=== PATIENT | female | born 1990 | race Caucasian/White ===

== ENCOUNTER → 2020-08-02 08:54 | Outpatient (CLI) | payer BC, SELFPAY ==
--- NOTE | ~2020-08-02 | MR_ITS ---
EXAMINATION: MR lumbar spine wo con DATE: 08/02/2020 09:46 INDICATION: Chronic bilateral low back pain with bilateral sciatica. TECHNIQUE: Magnetic resonance imaging (MRI) of the lumbar spine was performed without intravenous con trast. Sequences included sagittal T2-weighted FSE, sagittal T2-weighted FS FSE, sagittal T1-weighted FSE, and axial T2-weighted FSE. COMPARISON: Lumbar spine radiographs dated 07/09/2013 FINDINGS: Alignment is normal. Vertebral body heights are normal. Normal marrow signal. Normal disc heights and signal. The conus medullaris terminates at L1. There is normal signal in the caudal spinal cord. Par avertebral soft tissues are unremarkable. The following disc levels are specifically discussed: T12-L1: Disc is minimally bulging. There is mild left and minimal right facet joint osteoarthritis. T here is no neural foraminal stenosis. There is no central canal stenosis. L1-L2: Disc is minimally bulging. There is mild bilateral facet joint osteoarthritis. There is no bruno ral foraminal stenosis. There is no central canal stenosis. L2-L3: Disc is minimally bulging. There is mild bilateral facet joint osteoarthritis. There is minima l left neural foraminal stenosis. There is no central canal stenosis. L3-L4: Minimal left foraminal zone disc protrusion. There is mild bilateral facet joint osteoarthriti s. There is no neural foraminal stenosis. There is no central canal stenosis. L4-L5: Disc is minimally bulging. There is mild right and minimal left facet joint osteoarthritis. Th ere is mild bilateral neural foraminal stenosis. There is no central canal stenosis. L5-S1: Small central disc protrusion. There is mild bilateral facet joint osteoarthritis. There is mi ld left and minimal right neural foraminal stenosis. There is no central canal stenosis. IMPRESSION: 1. Minimal to mild lumbar spondylosis. Reviewed, dictated and finalized at location B.
== END ==
PROVIDERS: PCP Family Medicine; Visit Provider Physician Assistant Medical
DX: M54.42 Lumbago with sciatica, left side (principal); M54.41 Lumbago with sciatica, right side; G89.29 Other chronic pain; R29.898 Other symptoms and signs involving the musculoskeletal system
CPT/HCPCS: 72148

== ENCOUNTER → 2021-01-30 02:25 | Outpatient (CLI) | payer OTHER, SELFPAY ==
[2021-01-30 19:42] LABS: SARS-CoV-2 RNA PCR Negative
== END ==
PROVIDERS: PCP Family Medicine; Visit Provider Surgery Plastic and Reconstructive Surgery
DX: Z01.812 Encounter for preprocedural laboratory examination (principal); Z20.822 Contact with and (suspected) exposure to COVID-19
CPT/HCPCS: C9803; U0003; U0005

== ENCOUNTER 2021-02-02 05:31 | Day surgery (SDC) | payer OTHER, SELFPAY ==
[2021-01-20 10:32] VITALS: BMI 25.0
[2021-02-02] VITALS (7 sets, daily range): BP systolic 106–118; BP diastolic 62–85; PULSE 73–91; RESP 11–20; TEMP 36.5–36.6; O2SAT 97–100
[2021-02-02] MEDS: LACTATED RINGERS 1,000 ML 30 ML IV CONT ×2 (06:30→10:14)
[2021-02-02] MEDS: SCOPOLAMINE 1.5 MG PATCH TRANSDERM (07:00)
--- NOTE | 2021-02-02 07:02 | WPDHPUPDATE1 ---
History and Physical Update Update Date/Time: 02/02/21 07:02 History and Physical has been reviewed, including an updated exam of the patient. There are NO changes in the patient's condition. Risks, benefits, and alternatives have been discussed and questions answered. Patient agrees to proceed with procedure.
--- NOTE | 2021-02-02 07:05 | WPDANESEPPF ---
Anes - Initial Pre Proc Eval Procedure: Operation Date: 02/02/21 07:30 Proposed Procedures p Bilateral Breast Implant Exchange, Bilateral Capsulectomy - Hudson Ferrera MD s Bilateral Breast Mastopexy - Hudson Ferrera MD Date/Time: 02/02/21 07:05 Surgeon: Hudson Ferrera MD Pre Op Diagnosis: History of Breast Augmentation Patient Data Age: 31 Gender: F Height: 5 ft 7 in Weight: 72 kg Last Vital Signs Temp 36.6 C 02/02/21 06:10 Pulse 91 02/02/21 06:10 Resp 20 02/02/21 06:10 BP 106/80 02/02/21 06:10 Pulse Ox 100 02/02/21 06:10 Allergies Allergy/AdvReac Type Severity Reaction Status Date / Time amoxicillin Allergy Unknown Rash Verified 02/02/21 06:34 Home Medications Medication Instructions Recorded Confirmed Type docusate sodium 100 mg capsule 100 mg PO DAILY #14 cap 01/20/21 01/20/21 Rx norethindrone-e.estradiol-iron 1 tablet PO DAILY 01/20/21 01/20/21 History [Aurovela Fe 1-20 (28)] ondansetron HCl 4 mg tablet 4 mg PO Q8H #28 tablet 01/20/21 01/20/21 Rx carisoprodol 350 mg tablet 350 mg PO TID PRN #21 tablet 01/23/21 01/23/21 Rx oxycodone-acetaminophen 5 mg-325 1 tablet PO Q6H PRN #15 tablet 01/23/21 01/23/21 Rx mg tablet Patient hx anesthesia problems: other (motion sickness) Family hx anesthesia problems: none PMFSH Past Medical History Medical History Hx of migraines Family History Family History Other Family history of malignant neoplasm of breast Social History Social History Smoking status: Never smoker Alcohol intake: never Alcohol use details: 2 DRINK/MONTH Substance use: never Substance use type: does not use Living arrangements: with family Gender identity (if verbalized by the patient): Female Spiritual care concerns: No Anes - Eval Final PreProcedure Day of Procedure 02/02/21 07:05 Patient weight: normal Heart: regular rate and rhythm Lungs: clear to auscultation Airway: Mallampati scale class II Neurological: alert and oriented Last oral intake: >/= 8 hours ASA classification: II Emergent: no Anesthetic plan: proceed Anesthesia type and monitoring: general LMA and standard monitoring Other findings: TIVA Informed Consent: The patient's anesthetic plan and its attendant risks and benefits were discussed with the patient/family/POA. Questions were solicited and answers provided to the satisfaction of the patient/family/POA.
--- NOTE | 2021-02-02 07:09 | P.OP_ITS ---
Procedure Note - Detailed Date of procedure: 02/02/21 Pre-op diagnosis: History of Breast Augmentation Post-op diagnosis: same Procedure performed: Bilateral breast implant exchange Description of procedure: Patient was marked in the preoperative holding area with her and her verification. Risks, benefits, alternatives were discussed in extensive detail. I want him to be very realistic about the risks involved as well as expectations. Made sure answered all of their questions to their satisfaction. They voiced understanding. Consent obtained. She was taken to the operating room placed supine on the operating room table. Anesthesia provided by anesthesiology and prepped and draped in standard sterile fashion. 1% lidocaine and 0.25% Marcaine with epinephrine was used to provide a field block. I de-epithelialized a small portion which would provide coverage at the T junction. Fifteen blade was used to make an incision superior to this. Dissection was continued down until the implant was identified. I elevated just superficial to the capsule removing as much capsule as I could. This was sent to pathology. Implant was removed. On the right there was a small section a double capsule which was sent. I copiously irrigated with saline solution on TUR tubing. Verified strict hemostasis. I then irrigated with triple antibiotic Betadine containing solution. Using a no-touch technique and a Mann funnel the implant was introduced into the pocket. I closed using 2-0 Vicryl. I then tailor tacked the breast into position and placed in a sitting position. I verified my markings. Marked out the nipple-areolar complex at 38 mm. Location was based on preoperative markings, preoperative measurements, intraoperative observations and measurements which were all in full agreement. She was then placed supine. I marked out the nipple-areolar 38 mm and de- epithelialized a superior pedicle. I excised the central keel as well as inferiorly leaving the implant well protected. I elevated medial and lateral flaps for closure which were well vascularized just superficial to the implant location/ pectoralis major. I closed with 2-0 Vicryl. This was along the IMF and vertically. I closed around the areola and vertically with 3-0 Monocryl. The IMF with 3-0 strata fix. Final closure was running subcuticular 4-0 Monocryl and tissue glue. She was taken to the PACU without difficulty. All instrument sponge counts were correct at the end of the case. Anesthesia: GLMA Surgeon: Hudson Ferrera MD Estimated blood loss (mL): 30 Drains: No Packing: No Pathology: yes ( Bilateral implant capsule.) Complications: No immediate complications Condition: stable Disposition: PACU Findings: Bilateral inverted T superior pedicle mastopexy Implants removed Style 115 378cc Allergan (Submuscular) Implants placed [facility] Inspira SoftTouch 560cc Silicone (Submuscular same plane) Right: REF F-560 SN [id number] Left: REF F-560 [id number]
[2021-02-02] MEDS: diphenhydrAMINE HCl INJ 50 MG/ML VIAL 12.5 MG IV PUSH (10:27)
--- NOTE | 2021-02-02 11:20 | WPDANESPN ---
Anes - Prog Note Post-Op Date/Time: 02/02/21 11:20 Cardiovascular status: normal Respiratory status: normal Airway patency: baseline Mental status: baseline Post-Op hydration status: normal Vital Signs: Last Vital Signs Temp 36.5 C 02/02/21 10:14 Pulse 79 02/02/21 11:15 Resp 20 02/02/21 11:15 BP 118/78 02/02/21 11:15 Pulse Ox 100 02/02/21 11:15 Pain Score (VAS): 0 I/O: Intake & Output 02/01/21 02/02/21 02/02/21 23:59 07:59 15:59 Intake Total 200 Balance 200 Post-procedural complaints: none Patient Feedback: Patient satisfied with anesthetic care.
[2021-02-02] MEDS: oxyCODONE HCL (*CRX) 5 MG TAB IR PO (11:30)
== END 2021-02-02 05:32 | disposition home or self-care (01) ==
PROVIDERS: PCP Family Medicine; Visit Provider Surgery Plastic and Reconstructive Surgery
PROC: (CPT 19342; principal; 2021-02-02 07:30)
PROC: (CPT 19316; 2021-02-02 07:30)
DX: T85.49XA Other mechanical complication of breast prosthesis and implant, initial encounter (principal); Z98.82 Breast implant status
CPT/HCPCS: 19342

== ENCOUNTER 2021-02-03 13:26 | Outpatient (NON) | payer SELFPAY | END 2021-02-03 13:27 | disposition home or self-care (01) | LOC: ANHLAB 13:30 | PROVIDERS: PCP Family Medicine; Visit Provider Surgery Plastic and Reconstructive Surgery | DX: Z98.82 Breast implant status (principal) | CPT/HCPCS: 88304; 88305 ==

== ENCOUNTER 2024-04-07 00:02 | Inpatient (IN) | payer BC, SELFPAY ==
[2024-04-07] VITALS (98 sets, daily range): BP systolic 89–142; BP diastolic 57–103; PULSE 51–127; RESP 16–18; TEMP 36.4–36.7; O2SAT 76–100; BMI 32.0
--- NOTE | 2024-04-07 00:33 | LDADM ---
This patient, Saadia Marquis, was admitted to Labor/Delivery/Recovery 105 on 04/07/24 at 00:02. Plans for labor, pain management and were discussed with patient. Patient/family oriented to hospital policies and general routines including ID bracelet, bed and alarms, visiting hours, pain management, procedures, bathroom and other care routines, personal items, smoking policy, room service/diet and guest tray routines, security routines, and visiting hours. Patient/Family are encouraged to report perceived risks to care and to ask questions if they do not understand what they are told or what they should do. See OBIX for further documentation.
[2024-04-07] MEDS: OXYTOCIN 30 UNITS/NS 500 ML 30 UNITS/500 ML BAG IV CONT (00:55)
[2024-04-07 00:56] LABS: Basophils Absolute Auto 0.1 K/mm3 (0.0-0.1); Basophils Percent Auto 0.3 % (0.2-1.2); Eosinophils Absolute Auto 0.1 K/mm3 (0-0.3); Eosinophils Percent Auto 0.4 % (0-4.4); Hemoglobin 12.4 g/dL (12.0-15.0); Immature Granulocyte Absolute 0.11 K/mm3 (0.00-0.031); Immature Granulocyte Percent A 0.7 % (0-0.5); Lymphocytes Absolute Auto 3.02 K/mm3 (0.9-3.2); Lymphocytes Percent Auto 20.6 % (18.3-44.2); Mean Corpuscular HGB Conc 33.5 g/dl (32-36); Mean Corpuscular Hemoglobin 28.9 pg (26-34); Mean Corpuscular Volume 86.2 fl (80-100); Mean Platelet Volume 10.5 fl (7.4-10.4); Monocytes Absolute Auto 1.2 K/mm3 (0.1-0.6); Monocytes Percent Auto 7.9 % (2.6-8.5); Neutrophils Absolute Auto 10.3 K/mm3 (1.3-6.7); Neutrophils Percent Auto 70.1 % (45.5-73.1); Platelet Count Result 272 k/mm3 (150-375); Red Blood Count 4.29 M/mm3 (4.2-5.4); Red Cell Distribution Width 13.7 % (11.5-14.5); White Blood Count 14.7 K/mm3 (4.5-10.0)
[2024-04-07] MEDS: LACTATED RINGERS 1,000 ML 125 ML IV CONT ×2 (00:56→08:49)
[2024-04-07 01:47] LABS: HIV 1/2 Ab P24 Ag Result Negative (Negative)
--- NOTE | 2024-04-07 07:18 | WPDANESEPP ---
Anes - Eval Pre Procedure Procedure: labor epidural Date/Time: 04/07/24 07:18 Surgeon: chantel Preop Diagnosis: pain during labor Pre Op Diagnosis: IOL Patient Data Age: 34 Gender: F Height: 1.68 m Weight: 90 kg Last Vital Signs Temp 36.5 C 04/07/24 07:14 Pulse 85 04/07/24 07:16 Resp 16 04/07/24 07:14 BP 106/66 04/07/24 07:16 Allergies Allergy/AdvReac Type Severity Reaction Status Date / Time amoxicillin Allergy Unknown Rash Verified 03/23/24 14:37 Home Medications Medication Instructions Recorded Confirmed Type docusate sodium 100 mg capsule 100 mg PO DAILY #14 caps 01/20/21 01/20/21 Rx (Colace) norethindrone 1 mg-ethinyl 1 tablet PO DAILY 01/20/21 01/20/21 History estradiol 20 mcg (21)-iron 75 mg (7) tablet (Aurovela Fe 1-20 (28)) ondansetron HCl 4 mg tablet 4 mg PO Q8H #28 tabs 01/20/21 01/20/21 Rx (Zofran) carisoprodol 350 mg tablet (Soma) 350 mg PO TID PRN muscle pain #21 01/23/21 01/23/21 Rx tabs oxycodone-acetaminophen 5 mg-325 1 tablet PO Q6H PRN pain #15 tabs 01/23/21 01/23/21 Rx mg tablet (Percocet) clindamycin HCl 300 mg capsule 300 mg PO Q8H #21 caps 02/10/21 Rx methylprednisolone 4 mg tablets in See Rx Instructions PO PER PKG DIR 02/13/21 02/13/21 Rx a dose pack (Medrol (Jose G)) #21 ea sulfamethoxazole 800 1 tablet PO Q12H #14 tabs 02/13/21 02/13/21 Rx mg-trimethoprim 160 mg tablet (Bactrim DS) prednisone 50 mg tablet 50 mg PO DAILY #4 tabs 02/14/21 02/14/21 Rx Laboratory Tests 04/07/24 00:34 WBC 14.7 H K/mm3 (4.5-10.0) RBC 4.29 M/mm3 (4.2-5.4) Hgb 12.4 g/dL (12.0-15.0) Hct 37.0 % (37.0-47.0) MCV 86.2 fl (80-100) MCH 28.9 pg (26-34) MCHC 33.5 g/dl (32-36) RDW 13.7 % (11.5-14.5) Plt Count 272 k/mm3 (150-375) MPV 10.5 H fl (7.4-10.4) Immature Gran % (Auto) 0.7 H % (0-0.5) Neut % (Auto) 70.1 % (45.5-73.1) Lymph % (Auto) 20.6 % (18.3-44.2) Camp % (Auto) 7.9 % (2.6-8.5) Eos % (Auto) 0.4 % (0-4.4) Baso % (Auto) 0.3 % (0.2-1.2) Lymph # (Auto) 3.02 K/mm3 (0.9-3.2) Camp # (Auto) 1.2 H K/mm3 (0.1-0.6) Eos # (Auto) 0.1 K/mm3 (0-0.3) Baso # (Auto) 0.1 K/mm3 (0.0-0.1) Abs Immat Gran (auto) 0.11 H K/mm3 (0.00-0.031) Absolute Neuts (auto) 10.3 H K/mm3 (1.3-6.7) Absolute Nucleated RBC 0.000 K/mm3 (0.0-0.012) Nucleated RBC % 0.0 % (0.0-0.2) RPR Pending HIV 1&2 Ab/P24 Ag 4thGn Negative (Negative) Blood Type B Positive Antibody Screen Negative Patient hx anesthesia problems: other Family hx anesthesia problems: none Results Review: All pre-operative results and documents have been reviewed as part of the pre-operative evaluation. [facility] Past Medical History Medical History (Updated 04/07/24 @ 07:19 by Mary Greenwood CRNA) Herniated disc Hx of migraines IUP (intrauterine ), incidental Obesity (BMI 30-39.9) Family History Family History (Updated 03/23/24 @ 14:39 by Monae Rucker RN) Grandparent Family history of malignant neoplasm of breast Diabetes mellitus Social History Social History Smoking status: Former smoker Tobacco type: cigarettes Smoking end date: 08/31/11 Alcohol intake: current Alcohol use details: 2 DRINK/MONTH Substance use: never Substance use type: does not use Do You Feel Safe in your Home?: Yes Lack of Transportation: No Lack of Food: Never True Current Housing: I Have Housing Concerned About Future Housing: No Difficulty Paying Gas/Electric Bills: No Difficulty Paying for Meds: No Currently Unemployed: No Education: High School Diploma/GED Difficulty w/ Childcare or Family Care: No Living arrangements: with family Gender identity (if verbalized by the patient): Female Spiritual care concerns: No Exam Day of Procedure 04/07
--- NOTE | 2024-04-07 08:13 | PM.IMHP ---
H&P: HPI History of Present Illness Date/Time: 04/07/24 08:13 Chief Complaint: elective induction of labor Narrative: Patient is a who presents for elective induction of labor. Her has been complicated by di/di twin with demise of baby B at 7 weeks. Otherwise, her has been uncomplicated. She denies strong contractions, leakage of fluid or vaginal bleeding. She reports good movement. Review of Systems Review of Systems: All systems reviewed & are unremarkable except as noted in HPI and below PMFSH Past Medical History Medical History Herniated disc Hx of migraines IUP (intrauterine ), incidental Obesity (BMI 30-39.9) Family History Family History Grandparent Family history of malignant neoplasm of breast Diabetes mellitus Social History Social History Smoking status: Former smoker Tobacco type: cigarettes Smoking end date: 08/31/11 Alcohol intake: current Alcohol use details: 2 DRINK/MONTH Substance use: never Substance use type: does not use Do You Feel Safe in your Home?: Yes Lack of Transportation: No Lack of Food: Never True Current Housing: I Have Housing Concerned About Future Housing: No Difficulty Paying Gas/Electric Bills: No Difficulty Paying for Meds: No Currently Unemployed: No Education: High School Diploma/GED Difficulty w/ Childcare or Family Care: No Living arrangements: with family Gender identity (if verbalized by the patient): Female Spiritual care concerns: No Meds Home Medications and Allergies Home Medications Medication Instructions Recorded Confirmed Type docusate sodium 100 mg capsule 100 mg PO DAILY #14 caps 01/20/21 01/20/21 Rx (Colace) norethindrone 1 mg-ethinyl 1 tablet PO DAILY 01/20/21 01/20/21 History estradiol 20 mcg (21)-iron 75 mg (7) tablet (Aurovela Fe 1-20 (28)) ondansetron HCl 4 mg tablet 4 mg PO Q8H #28 tabs 01/20/21 01/20/21 Rx (Zofran) carisoprodol 350 mg tablet (Soma) 350 mg PO TID PRN muscle pain #21 01/23/21 01/23/21 Rx tabs oxycodone-acetaminophen 5 mg-325 1 tablet PO Q6H PRN pain #15 tabs 01/23/21 01/23/21 Rx mg tablet (Percocet) clindamycin HCl 300 mg capsule 300 mg PO Q8H #21 caps 02/10/21 Rx methylprednisolone 4 mg tablets in See Rx Instructions PO PER PKG DIR 02/13/21 02/13/21 Rx a dose pack (Medrol (Jose G)) #21 ea sulfamethoxazole 800 1 tablet PO Q12H #14 tabs 02/13/21 02/13/21 Rx mg-trimethoprim 160 mg tablet (Bactrim DS) prednisone 50 mg tablet 50 mg PO DAILY #4 tabs 02/14/21 02/14/21 Rx Allergies Allergy/AdvReac Type Severity Reaction Status Date / Time amoxicillin Allergy Unknown Rash Verified 03/23/24 14:37 Vital Signs Vital Signs - 24 hr 04/07/24 01:00 04/07/24 01:30 04/07/24 01:45 Temperature 97.6 F Pulse Rate 89 87 86 Respiratory Rate Blood Pressure 110/79 116/69 112/75 04/07/24 02:00 04/07/24 02:15 04/07/24 02:30 Temperature Pulse Rate 77 86 88 Respiratory Rate Blood Pressure 113/73 112/65 101/68 04/07/24 02:45 04/07/24 03:15 04/07/24 03:30 Temperature Pulse Rate 88 93 101 H Respiratory Rate Blood Pressure 111/77 116/66 118/64 04/07/24 03:45 04/07/24 04:00 04/07/24 04:15 Temperature Pulse Rate 91 88 88 Respiratory Rate Blood Pressure 123/78 120/85 120/72 04/07/24 04:30 04/07/24 04:45 04/07/24 05:00 Temperature 98.1 F Pulse Rate 85 85 79 Respiratory Rate Blood Pressure 108/73 98/71 L 112/83 04/07/24 05:15 04/07/24 05:30 04/07/24 06:15 Temperature Pulse Rate 79 91 81 Respiratory Rate Blood Pressure 112/78 128/88 133/73 04/07/24 06:30 04/07/24 06:45 04/07/24 07:00 Temperature Pulse Rate 81 83 82 Respiratory Rate Blood Pressure 112/81 120/84 119/75 04/07/24 07:16
[2024-04-07] MEDS: OXYTOCIN 30 UNITS/NS 500 ML 30 UNITS/500 ML BAG 125 UNITS IV CONT (12:02)
--- NOTE | 2024-04-07 13:05 | PM.OBPRVD ---
OB - Vaginal Delivery Note Procedure Delivery date: 04/07/24 Events: Elective Induction of Labor Induction method: Per Pitocin Protocol Delivery augmentation: Rupture of Membranes Delivery monitor: External FHT and Internal Uterine Route of delivery: Episiotomy description: None Laceration Description: None Specimen: No Quantitative Blood Loss (ml): 50 Anesthesia type: Epidural Disposition: Floor Complications: No immediate complications Narrative: See H&P and notes for details on patient's admission and labor. She progressed to complete cervical dilation and at the appropriate time began pushing. With adequate expulsive efforts by the mother, the baby's head was delivered without difficulty. Nuchal cord was not present. The baby's right shoulder was anterior and delivered under the pubic symphysis without difficulty. The posterior shoulder and the rest of the baby delivered without difficulty. The umbilical cord was doubly clamped and cut after 60 seconds of delayed cord clamping. Care of the was then assumed by the nursing staff. Baby Date of : 04/07/24 Weeks of gestation at delivery: 39 Infant gender: Male presentation: vertex position: Left Occiput Anterior Placenta delivery description: Expressed Cord Vessel Description: 3 Vessels and Delayed Cord Clamping
[2024-04-07 13:39] LABS: Rapid Plasma Reagin Non-Reactive (NonReactive)
--- NOTE | 2024-04-07 15:08 | OBPPTRN ---
Patient transferred to post room #281 via wheelchair. Support person present. Oriented to unit, room, information board, rooming in, admission packet and security measures. Patient verbalizes understanding.
[2024-04-08 04:20] VITALS: BP 117/81; PULSE 82; RESP 18; TEMP 36.8
[2024-04-08] MEDS: IBUPROFEN 600 MG TABLET PO (04:20)
[2024-04-08 05:37] LABS: Hematocrit 36.1 % (37.0-47.0); Hemoglobin 11.7 g/dL (12.0-15.0)
[2024-04-08 07:55] VITALS: BP 110/66; PULSE 78; RESP 16; TEMP 36.6; O2SAT 97
--- NOTE | 2024-04-08 08:13 | PM.OBPNVD ---
OB - PN: Subj Subjective Date/time seen: 04/08/24 08:13 Interval history: pp day 1 doing well denies complaints OB - PN: Obj Data Labs 04/08/24 04:13 Labs: Laboratory Results - last 24 hr 04/07/24 04/08/24 00:34 04:13 Hgb 11.7 L Hct 36.1 L RPR Non-reactive OB - PN A/P Plan day: 1 Plan: routine care Time Spent With Patient Time: Total time spent is greater than 50% in coordination of care (as documented) at patient's floor/unit and/or counseling patient: Review of Systems Review of Systems: All systems reviewed & are unremarkable except as noted in HPI and below Exam Const: General: cooperative and healthy appearing Chest: Chest palpation & inspection: normal inspection of the chest Resp: Effort & Inspection: normal respiratory effort Cardio: Rate: regular rate Rhythm: regular rhythm GI: Inspection: normal to inspection Back/Spine/Pelvis: Back: no CVA tenderness Neuro: General: patient oriented x3 Extrem: General: normal to inspection Psych: Appearance: grossly normal
[2024-04-08] MEDS: MULTIVIT/MIN/PREN/FOL AC/IRON TABLET 1 TAB PO (08:38)
--- NOTE | 2024-04-08 10:40 | WPDANLDPN2 ---
Anes-Prog Note L&D Date/Time: 04/08/24 10:40 Comfortable throughout: labor and delivery Neuraxial method: epidural Epidural/Spinal procedure site: clean & non-tender Neuro status: Neuro function grossly intact. Cardiovascular status: normal Respiratory status: normal Airway patency: baseline Mental status: baseline Post-Op hydration status: normal Vital Signs: Last Vital Signs Temp 36.6 C 04/08/24 07:55 Pulse 78 04/08/24 07:55 Resp 16 04/08/24 07:55 BP 110/66 04/08/24 07:55 Pulse Ox 97 04/08/24 07:55 O2 Del Method Room Air 04/07/24 20:00 Pain score (VAS): 0/10 I/O: Intake & Output 04/07/24 04/08/24 04/08/24 23:59 07:59 15:59 Intake Total 0 240 Balance 0 240 Post-procedural complaints: none Patient feedback: Patient satisfied with anesthetic care.
--- NOTE | 2024-04-08 12:17 | PC.NURSE ---
Patient viewed the discharge video Mother & Baby Care, The First Two Weeks . Patient was given the opportunity and encouraged to ask questions. Patient verbalized understanding of information shared and has been given the mother/baby guide for home reference.
--- NOTE | 2024-04-08 14:08 | PC.NURSE ---
[id number]. Introductions were made, then consulted with patient to assess needs related to . Mother led the conversation with her?plans to feed?her and the?experience so far. Mother explained that baby likes to curl under his bottom lip so she has been using a nipple shield, and has also been pumping. Mom said she was able to pump 5ml of EBM. Encouraged understanding of the benefits of skin to skin (demonstrating unwrapping and placing upright on her chest), stimulating with massage touch, changing positions to encourage wakefulness, how to watch for early feeding cues, responsive feeding, feeding on demand (aiming for 8-12 times in 24 hours, about every 2-3 hours), milk production,- building/maintaining a milk supply, duration of feeding, signs of adequate intake/output and how to record on the feeding sheet. Education given to the mother of how to visualize the suckling (with good rocking jaw motion), swallows (dropping of the lower jaw) and how to listen for drinking at the breast (the ka sound). Reviewed comfort measures of healing with a warm, wet washcloth to rinse breast, then leave open to air-dry, good handwashing when or touching the breast/nipples to prevent infection. Mother voiced understanding of skin to skin, stimulating with massage touch, responsive feedings, hand expressed colostrum, talking to infant to encourage if it has been 2 -2.5 hours since the start of the last , to call if infant does not latch, or if there is discomfort with . Resources used for education were facilitated with the visual educational handouts\&mom and baby guide. Inpatient resources provided with feeding sheet, name written on the communication board, and the mom/baby guide. Parents voiced understanding of information, demonstrated learning and will call if there is a request for assistance getting baby to latch or other needs. Reported to the Primary RN.
[2024-04-08 19:05] VITALS: BP 118/79; PULSE 83; RESP 16; TEMP 36.9; O2SAT 97
[2024-04-09 07:35] VITALS: BP 112/72; PULSE 76; RESP 16; TEMP 36.9; O2SAT 98
--- NOTE | 2024-04-09 07:50 | PM.OBPNVD ---
OB - PN: Subj Subjective Date/time seen: 04/09/24 07:50 Interval history: pp day 1 doing well denies complaints OB - PN: Obj Data Labs 04/08/24 04:13 OB - PN A/P Plan day: 2 Plan: routine care and discharge home Time Spent With Patient Time: Total time spent is greater than 50% in coordination of care (as documented) at patient's floor/unit and/or counseling patient:
--- NOTE | 2024-04-09 07:51 | PM.OBDSVD ---
DS: Admitting Diagnosis Discharge Date 04/09/24 Admitting Diagnosis IOL DS: Discharge Diagnosis Discharge Diagnosis (1) Vaginal delivery: Code(s): O80 - Encounter for full-term uncomplicated delivery Status: Acute OB - DS: Summary OB Procedures : None OB Procedures Intrapartum: Spontaneous Vag Delivery OB Procedures: : None Peripartum Data Laceration Description: None Episiotomy description: None Time Spent with Patient Time attestation: Total time spent providing and/or coordinating discharge services: Discharge Plan Discharge Attending physician on discharge: Cesar Vaca Discharging Clinician: Lesli Valderrama Patient Disposition: Home, Self-Care Activity: pelvic rest Diet: regular Patient Instructions: Antibiotic Form Stand Alone Forms: General Discharge Information Follow-up/Referrals: Cesar Vaca MD [Physician] - 4 Weeks Discharge Medications: New ibuprofen 600 mg Tablet 600 mg PO Q6H PRN (Reason: Cramping) Qty: 30 0RF Continued docusate sodium [Colace] 100 mg capsule 100 mg PO DAILY Qty: 14 0RF carisoprodol [Soma] 350 mg tablet 350 mg PO TID PRN (Reason: muscle pain) Qty: 21 0RF Discontinued ondansetron HCl [Zofran] 4 mg tablet 4 mg PO Q8H Qty: 28 0RF oxycodone-acetaminophen [Percocet] 5-325 mg tablet 1 tablet PO Q6H PRN (Reason: pain) Qty: 15 0RF clindamycin HCl 300 mg capsule 300 mg PO Q8H Qty: 21 0RF prednisone 50 mg tablet 50 mg PO DAILY Qty: 4 0RF sulfamethoxazole-trimethoprim [Bactrim DS] 800-160 mg tablet 1 tablet PO Q12H Qty: 14 0RF methylprednisolone [Medrol (Jose G)] 4 mg tablets,dose pack See Rx Instructions PO PER PKG DIR Qty: 21 0RF Rx Instructions: PO PER PKG DIR norethindrone-e.estradiol-iron [Aurovela Fe 1-20 (28)] 1 mg-20 mcg (21)/75 mg (7) tablet 1 tablet PO DAILY Date of admission: 04/07/24 00:02 Primary Care Provider: UNKNOWN,DOCTOR Admitting Provider: Cesar Vaca Attending physician on admission: Cesar Vaca Condition: Stable
[2024-04-09] MEDS: MULTIVIT/MIN/PREN/FOL AC/IRON TABLET 1 TAB PO (09:01)
[2024-04-10 11:09] VITALS: BP 110/79; PULSE 100; RESP 18; TEMP 36.7; O2SAT 97
== END 2024-04-09 11:41 | disposition home or self-care (01) | DRG 807 ==
LOC: ANHLDR 00:03 → ANHOB2 15:37
PROVIDERS: Admitting Provider Obstetrics & Gynecology; Visit Provider Obstetrics & Gynecology
DX: O30.041 Twin pregnancy, dichorionic/diamniotic, first trimester (principal); Z37.0 Single live birth; Z3A.39 39 weeks gestation of pregnancy
CPT/HCPCS: 36415; 85014; 85018; 85025; 86592; 86703; 86850; 86900; 86901; A9270; G0432; J2590; J2795; J7120